=== PATIENT | male | born 1955 | race Caucasian/White ===

== ENCOUNTER 2019-03-31 12:53 | Inpatient (IN) ==
[2019-03-31 17:40] LABS: Basophils % 0.5 % (0.0-0.8); Eosinophils # 0.1 10*3/uL (0.0-0.87); Eosinophils % 2.3 % (0.00-10.9); Hematocrit 24.5 VOL% (42.0-52.0); Hemoglobin 8.6 GM/DL (14.0-18.0); Immature Granulocytes % 0.5 %; Immature Granulocytes Absolute 0.02 #; Lymphocytes # 2.2 10*3/uL (1.4-4.0); Lymphocytes % 51.5 % (21.2-54.2); Mean Corpuscular HGB Conc 35.1 GM/DL (32-36); Mean Platelet Volume 11.4 FL (9.6-12.0); NRBC # 0.03 10*3/uL; Neutrophils % 39.2 % (38.7-73.9); Platelet Count 130 T/CUMM (130-400); Red Blood Count 1.96 MC/CUMM (3.8-5.5); Red Cell Distribution Width 14.7 % (9.3-17.3); White Blood Count 4.3 T/CUMM (4-12)
[2019-03-31 17:54] LABS: PT Patient Result 10.7 SECS; Partial Thromboplastin Time < 21.0 SECS (0-40)
[2019-03-31 17:59] LABS: Albumin 5.2 G/DL (3.4-5.0); Bilirubin,Total 1.2 MG/DL (0.2-1.0); Calcium 8.9 MG/DL (8.5-10.1); Osmolality,Calculated 278.3 MOS/KG (273-304); Total Protein 7.7 G/DL (6.4-8.3)
[2019-03-31 18:00] LABS: Troponin I < 0.015 NG/ML (0.00-0.045)
[2019-03-31] MEDS ORDERED: ACETAMINOPHEN 325 MG TABLET PO PRN (18:15)
[2019-03-31] MEDS ORDERED: ONDANSETRON 4 MG/2 ML VIAL IV PRN (18:15)
[2019-03-31 18:37] LABS: Hypochromasia 1+; Ovalocytes Slight
[2019-03-31] MEDS: DEXTROSE 5% NACL 0.9% 1,000 ML IV SCH (19:40)
[2019-03-31] MEDS: NICOTINE 21 MG/24 HR PATCH TRANSDERM SCH (23:34)
[2019-03-31] MEDS: GABAPENTIN 600 MG TABLET PO SCH (23:34)
[2019-04-01 05:04] LABS: Basophils % 0.6 % (0.0-0.8); Eosinophils # 0.1 10*3/uL (0.0-0.87); Hematocrit 20.2 VOL% (42.0-52.0); Hemoglobin 7.2 GM/DL (14.0-18.0); Immature Granulocytes % 0.3 %; Immature Granulocytes Absolute 0.01 #; Lymphocytes # 1.9 10*3/uL (1.4-4.0); Lymphocytes % 56.2 % (21.2-54.2); Mean Corpuscular HGB Conc 35.6 GM/DL (32-36); Mean Corpuscular Volume 126.3 FL (87-102); Mean Platelet Volume 11.6 FL (9.6-12.0); Monocytes % 8.8 % (1.7-12.7); NRBC # 0.02 10*3/uL; Neutrophils % 31.1 % (38.7-73.9); Platelet Count 101 T/CUMM (130-400); Red Cell Distribution Width 14.7 % (9.3-17.3); White Blood Count 3.3 T/CUMM (4-12)
[2019-04-01 05:30] LABS: % Iron Saturation 89.3 % (18-50); Albumin 3.8 G/DL (3.4-5.0); Bilirubin,Total 1.4 MG/DL (0.2-1.0); Calcium 8.4 MG/DL (8.5-10.1); Ferritin 643.2 ng/ml (26-388); Osmolality,Calculated 281.1 MOS/KG (273-304); Thyroid Stimulating Hormone 4.85 uIU/ml (0.358-3.74); Total Protein 5.9 G/DL (6.4-8.3)
[2019-04-01 05:33] LABS: Anisocytosis 2+; Band Neutrophils 1 % (0-10); Eosinophils 3 % (0-10); Hypochromasia 2+; Lymphocytes 51 % (20-55); Macrocytosis 2+; Metamyelocytes 3 %; Myelocytes 1 %; Nucleated Red Blood Cells 4 (0-5); Ovalocytes 2+; Platelet Estimate Decreased; Segmented Neutrophils 32 % (50-85); Total Cells Counted 100
[2019-04-01] MEDS: LEVOTHYROXINE 112 MCG TABLET PO SCH (06:06)
[2019-04-01] MEDS ORDERED: SODIUM CHLORIDE 0.9% 1,000 ML IV PRN ×2 (06:25→06:28)
[2019-04-01] MEDS: DEXTROSE 5% NACL 0.9% 1,000 ML IV SCH ×3 (06:47→18:36)
[2019-04-01] MEDS ORDERED: CYANOCOBALAMIN 1000 MCG/1 ML VIAL SUBCUT ONE (06:54)
[2019-04-01] MEDS ORDERED: LIDOCAINE 2% 5 ML VIAL ONE (09:00)
[2019-04-01] MEDS ORDERED: PROPOFOL 200 MG/20 ML VIAL IV ONE (09:00)
[2019-04-01] MEDS ORDERED: PHENYLEPHRINE 1 MG/10 ML SYRINGE IV ONE (09:00)
[2019-04-01] MEDS: MONTELUKAST 10 MG TABLET PO SCH (10:36)
[2019-04-01] MEDS: PANTOPRAZOLE 40 MG TABLET PO SCH (10:36)
[2019-04-01] MEDS: CYANOCOBALAMIN 1000 MCG/1 ML VIAL IM SCH (10:37)
[2019-04-01] MEDS: LISINOPRIL 10 MG TABLET PO SCH (10:38)
[2019-04-01] MEDS: NICOTINE 21 MG/24 HR PATCH TRANSDERM SCH (10:38)
[2019-04-01 19:57] LABS: Hematocrit 29.6 VOL% (42.0-52.0)
[2019-04-01 19:59] LABS: Hemoglobin 10.4 GM/DL (14.0-18.0)
[2019-04-01] MEDS: GABAPENTIN 600 MG TABLET PO SCH (20:50)
[2019-04-01] MEDS ORDERED: NICOTINE 21 MG/24 HR PATCH TRANSDERM SCH (21:00)
[2019-04-02] MEDS: DEXTROSE 5% NACL 0.9% 1,000 ML IV SCH (06:20)
[2019-04-02] MEDS: LEVOTHYROXINE 112 MCG TABLET PO SCH (06:22)
[2019-04-02] MEDS: LISINOPRIL 10 MG TABLET PO SCH (09:03)
[2019-04-02] MEDS: MONTELUKAST 10 MG TABLET PO SCH (09:03)
[2019-04-02] MEDS: PANTOPRAZOLE 40 MG TABLET PO SCH (09:03)
[2019-04-02] MEDS: CYANOCOBALAMIN 1000 MCG/1 ML VIAL IM SCH (09:03)
[2019-04-02 12:01] VITALS: BP 122/72
[2019-04-03] MEDS ORDERED: BISACODYL 5 MG TABLET PO SCH (07:30)
[2019-04-03] MEDS ORDERED: POLYETHYLENE GLYCOL POWDER 255 GM BOTTLE PO ONE (18:00)
[2019-04-03] MEDS ORDERED: MAGNESIUM CITRATE 300 ML BOTTLE PO ONE (21:00)
== END 2019-04-02 13:04 | disposition home or self-care (01) | DRG 812 ==
LOC: N.EDINP 12:53 → N.ED 12:53 → SUATTDRO 18:15 → N.4E 19:38
PROVIDERS: ADMIT Internal Medicine; ATTEND Internal Medicine